=== PATIENT | female | born 1955 | race American Indian/Alaskan Native ===

== ENCOUNTER 2022-06-09 14:44 | Emergency (ER) | payer MEDICARE ==
[2022-06-09 16:35] VITALS: BP 185/81
== END 2022-06-10 13:04 | disposition left against medical advice (07) ==
LOC: ED 14:44
DX: E07.9 Disorder of thyroid, unspecified (principal); Z53.21 Procedure and treatment not carried out due to patient leaving prior to being seen by health care provider